=== PATIENT | female | born 1955 | race Two or more races ===

== ENCOUNTER 2017-09-09 08:27 | Emergency (ER) | payer BC ==
[~2017-09-09] VITALS: Ht 160 cm; Wt 77.1 kg
--- NOTE | 2017-09-09 09:26 | Emergency Room Report ---
History of Present Illness General Chief Complaint: General Complaint Source: Patient Present Illness HPI 62-year-old female walked in with uncontrolled sporadic eye movement earlier this morning while doing training for a marathon walking. 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 Patient was having full conversation with another participant during this incident. States she was unable to control her eyes from looking around. It was also associated with some spasm of the body. Patient denied any associated vision loss, blurred vision, headache, extremity weakness, slurred speech. Denies previous stroke. Denies other medical problems, medications, alcohol or drug use. States has had this evaluated by a neurologist previously. States "they didn't find anything wrong." Not sure she had CT or MRI but had some type of imaging, where this was one to 2 years ago. States she drinks a lot of water during the week, had seltzer water this morning. Allergies: Uncoded Allergies: CAT (Allergy, Unknown, 09/09/17) Patient History Past Medical History: none Past Surgical History: none Pertinent Family History: none Social History: Denies: smoking, alcohol use, drug use Immunizations: UTD Reviewed Nursing Documentation: PMH: Agreed, PSxH: Agreed Nursing Documentation-PMH Past Medical History: No Stated History Review of Systems All Other Systems: negative except mentioned in HPI Physical Exam Vital Signs Date Time Temp Pulse Resp B/P (MAP) Pulse Ox O2 Delivery O2 Flow Rate FiO2 09/09/17 08:32 97.3 66 14 122/75 98 Room Air Sp02 EP Interpretation: reviewed, normal General Appearance: normal inspection, well appearing, no apparent distress, alert, GCS 15, non-toxic Head: normocephalic, atraumatic Eyes: bilateral eye PERRL, bilateral eye EOMI, bilateral eye other - Mild horizontal nystagmus, no vertical nystagmus ENT: normal ENT inspection, hearing grossly normal, normal voice Neck: normal inspection, full range of motion, supple, no bony tend Respiratory: normal inspection, lungs clear, normal breath sounds, no respiratory distress, no retraction, no wheezing Cardiovascular #1: regular rate, rhythm, no edema Gastrointestinal: normal inspection, normal bowel sounds, non tender, soft, no guarding, no hernia Genitourinary: no CVA tenderness Musculoskeletal: normal inspection, back normal, normal range of motion, Regine' s Sign negative Neurologic: normal inspection, alert, oriented x3, responsive, office engineer III-XII nml as tested, speech normal Psychiatric: normal inspection, judgement/insight normal, mood/affect normal Skin: normal inspection, normal color, no rash Medical Decision Making Diagnostic Impression: Primary Impression: Eye movement abnormality ER Course 62-year-old male with uncontrolled eye movement now resolved Incident lasted 3 minutes Vital signs stable here, no focal neurological deficits No vision loss No vertical nystagmus No dizziness or abnormal gait No metabolic abnormalities on blood test CT head negative for acute intracranial bleed or CVA Unlikely that this is TIA or CVA given that it occurs each Monday morning when she has training Possibly due to not getting enough sleep ER course: Patient has remained stable during ED stay. Patient is to be discharged to home. Patient is instructed to follow up with their primary care doctor within 5 days. Strict return precautions discussed with patient such as fever, chills, worsening/severe pain, nausea, vomiting, which may indicate severe illness. Patient verbalizes understanding and agrees with plan. Please note that this Emergency Department Report was dictated using [employer] technology software, occasionally this can lead to erroneous entry secondary to interpretation by the dictation equipment Last Vital Signs Date Time Temp Pulse Resp B/P (MAP) Pulse Ox O2 Delivery O2 Flow Rate FiO2 09/09/17 08:32 97.3 66 14 122/75 98 Room Air Status: improved Disposition: HOME, SELF-CARE Scripts No Active Prescriptions or Reported Meds Referrals: NON PHYSICIAN (PCP) ANA SUMMERS M.D. Sep 09, 2017 09:26
--- NOTE | 2017-09-09 10:24 | Diagnostic Imaging Report ---
Indication: Headache Technique: Contiguous 5 mm thick transaxial imaging of the head obtained in a Siem[employer] Sensation [address] scanner. Soft tissue and bone windows generated. Automatic Exposure Control was utilized. Total Dose length Product (DLP): 13.[address] Dose Index Volume (CTDIvol): 70.38, 0.15 mGy Comparison: none Findings: 6 mm cystic focus in the left is again probably old lacunar infarct. The size and configuration of the cortical sulci, basal cisterns, and ventricles are within normal limits for age. There is no mass effect, midline shift, or edema identified. There is no evidence of acute hemorrhage or abnormal intra-axial or extra-axial fluid collections. The bones and soft tissues are unremarkable. Impression: No mass effect, edema or acute bleed. Probable old lacunar infarct left basal ganglia The CT scanner at [facility] is accredited by the [employer] and the scans are performed using dose optimization techniques as appropriate to a performed exam including Automatic Exposure control.
[2017-09-09 10:29] LABS: BASOPHILS % (AUTO) 1.5 % (0.0-2.0); EOSINOPHILS % (AUTO) 0.7 % (0.0-3.0); LYMPHOCYTES % (AUTO) 47.1 % (20.0-45.0); MEAN CORPUSCULAR HEMOGLOBIN 27.3 PG (27.0-31.0); MEAN CORPUSCULAR HGB CONC 31.2 G/DL (32.0-36.0); MEAN CORPUSCULAR VOLUME 88 FL (80-99); MEAN PLATELET VOLUME 7.2 FL (6.5-10.1); MONOCYTES % (AUTO) 6.9 % (1.0-10.0); NEUTROPHILS % (AUTO) 43.8 % (45.0-75.0); PLATELET COUNT 270 K/UL (150-450); RED BLOOD COUNT 5.18 M/UL (4.20-5.40); RED CELL DISTRIBUTION WIDTH 14.2 % (11.6-14.8); WHITE BLOOD COUNT 5.1 K/UL (4.8-10.8)
[2017-09-09 10:30] VITALS: BP 123/54
[2017-09-09 10:38] LABS: ALANINE AMINOTRANSFERASE 31 U/L (12-78); ALBUMIN/GLOBULIN RATIO 0.8 (1.0-2.7); ANION GAP 6 mmol/L (5-15); ASPARTATE AMINO TRANSFERASE 25 U/L (15-37); CALCIUM 8.9 MG/DL (8.5-10.1); CARBON DIOXIDE 27 MMOL/L (21-32); CHLORIDE 106 MMOL/L (98-107); CREATININE 0.8 MG/DL (0.55-1.30); GLOMERULAR FILTRATION RATE > 60 mL/min (>60); POTASSIUM 4.2 MMOL/L (3.5-5.1); SODIUM 139 MMOL/L (136-145); TOTAL PROTEIN 7.3 G/DL (6.4-8.2)
[2017-09-09 11:02] VITALS: BP 123/54
== END 2017-09-09 11:02 | disposition home or self-care (01) ==
LOC: EMR 08:32
DX: H57.8 Other specified disorders of eye and adnexa (principal); R51 Headache
CPT/HCPCS: 36415; 70450; 80053; 85025; 99284